=== PATIENT | male | born 1960 | race African-American/Black ===

== ENCOUNTER 2017-01-03 08:48 | Day surgery (SDC) | payer OTHER ==
[~2017-01-03] VITALS: Ht 182.9 cm; Wt 84.1 kg
[2017-01-03] MEDS ORDERED: FENTAnyl 50 MCG/ML VIAL ONE (09:22)
[2017-01-03] MEDS ORDERED: MIDAZOLAM 1 MG/ML 2 ML INJ ONE (09:22)
[2017-01-03] MEDS ORDERED: PROPOFOL 20 ML ONE ×2 (09:23→10:01)
[2017-01-03 09:24] VITALS: Ht 182.9 cm; Wt 84.1 kg
[2017-01-03] MEDS ORDERED: ARIP10TA13 PO (09:29)
[2017-01-03 09:37] VITALS: BP 158/70; PULSE 56; RESP 18
--- NOTE | 2017-01-03 10:26 | OPPN ---
Date/Time of Note Date/Time of Note DATE: 01/03/17 TIME: 10:24 Proc Note GI Free Text/Dictation Colonoscopy, multiple biopsies of diminutive polyps Procedure date: Jan 03, 2017 Pre-procedure Diagnosis Colon polyps Post-procedure Diagnosis colon polyps, diverticulosis Operation Performed Colonoscopy and biopsies Surgeon: SUKHJINDER ANDRADE M.D. Anesthesia Type: MAC Anesthesiologist: MERYL ONEILL MD Estimated blood loss: minimal Transfusion Required: no Specimens multiple diminutive polyps Grafts/Implants: none Complications: no Pt Condition post procedure: stable Disposition: PACU SUKHJINDER ANDRADE M.D. Jan 03, 2017 10:26
[2017-01-03 10:55] VITALS: BP 126/76; RESP 19
--- NOTE | 2017-01-03 11:14 | OPR ---
DATE OF OPERATION: 01/03/2017 OPERATION PERFORMED: Colonoscopy and biopsy. PREOPERATIVE DIAGNOSIS: Colon polyps. POSTOPERATIVE DIAGNOSIS: Colon polyps. SURGEON: Xavi New MD. ANESTHESIOLOGIST: Dr. Boswell. POSITION: Left lateral decubitus. OPERATIVE FINDINGS AT SURGERY: 1. Multiple diminutive sessile polyps. 2. Mild left-sided diverticulosis. ESTIMATED BLOOD LOSS: Minimal. INDICATIONS: A 56-year-old man, who came to the office claiming he had a colonoscopy 5 or 6 years ago with multiple polyps removed. Given the patient's age and findings from last visit, I discussed the risks and benefits of a colonoscopy, possible biopsy. I warned the patient of the risks including bleeding, infection, damage to surrounding structures, perforation. Patient agreed to the procedure and we went to the GI suite. OPERATIVE PROCEDURE: After obtaining consent, the patient was brought to the GI suite. After induction of anesthesia, patient was gently placed in left lateral decubitus position. Pressure points were carefully padded. I began with a digital rectal exam, which was unremarkable. I then placed a lubricated Olympus colonoscope in the patient's anus and navigated carefully to the cecum. The cecum was identified by the ileocecal valve and the appendiceal orifice. On the way out, the prep was good. I biopsied multiple diminutive polyps at 70, 30, 20 and 15 from the anal verge. These were removed with cold forceps and sent for pathology. Hemostasis was achieved. On retroflexion, patient had mild internal hemorrhoids. The scope was removed and the procedure was terminated. The patient tolerated the procedure well. Patient was transferred to PACU in good condition. I will call patient with biopsy results. Dictated By: Xavi New MD /kushal/dinora /Document#: [id number] GABRIEL
== END 2017-01-03 11:36 | disposition home or self-care (01) ==
LOC: GIL 08:48
PROVIDERS: ATTEND Surgery
DX: Z12.11 Encounter for screening for malignant neoplasm of colon (principal); K57.90 Diverticulosis of intestine, part unspecified, without perforation or abscess without bleeding; K63.5 Polyp of colon
CPT/HCPCS: 45380; 88305; J2250; J3010; Z7610

== ENCOUNTER 2017-02-08 06:45 | Day surgery (SDC) | payer OTHER ==
[2017-02-08] VITALS (10 sets, daily range): BP systolic 114–143; BP diastolic 73–85; PULSE 55–64; RESP 14–22
[~2017-02-08] VITALS: Ht 182.9 cm; Wt 81.2 kg
[~2017-02-08 06:45] MED LIST: ARIP10TA13 PO; CLINDAMYCIN 600 MG/D5W (PMX) 50 ML IVPB SCH; SOD CHLORIDE 0.9% 1,000 ML IV SCH
[2017-02-08] MEDS ORDERED: LIDOCAINE 2% (SDV) 5 ML INJ ONE (07:10)
[2017-02-08] MEDS ORDERED: PROPOFOL 20 ML ONE (07:10)
[2017-02-08] MEDS ORDERED: MIDAZOLAM 1 MG/ML 2 ML INJ ONE (07:11)
[2017-02-08] MEDS ORDERED: ONDANSETRON 4 MG INJ ONE (07:11)
[2017-02-08] MEDS ORDERED: DEXAMETHASONE 4 MG/ML 1 ML INJ ONE (07:11)
[2017-02-08] MEDS ORDERED: FENTAnyl 50 MCG/ML VIAL ONE (07:11)
[2017-02-08] MEDS ORDERED: BUPIVACAINE 0.25% (MPF) 30 ML INJ ONE (07:50)
[2017-02-08] MEDS ORDERED: GLYCOPYRROLATE 0.4 MG INJ ONE (08:11)
--- NOTE | 2017-02-08 08:13 | RADRPT ---
PROCEDURE: XR Chest 1 View. CLINICAL INDICATION: Abnormal breath sounds, preop. TECHNIQUE: AP view of the chest was obtained. COMPARISON: None. FINDINGS: The heart size is within normal limits. Calcified atherosclerosis is noted in the aorta. No consol idations are identified. No pneumothorax is seen. Osseous structures are intact. IMPRESSION: Calcified atherosclerosis in the aorta. Clear lungs. RPTAT: AA .Kennedy Faulkner MD, Date Time Electronically viewed and signed by .Kennedy Faulkner MD, MD on 02/08/2017 08:13 .P/
[2017-02-08] MEDS ORDERED: MEPERIDINE 25 MG INJ IV PRN (08:30)
[2017-02-08] MEDS ORDERED: DIPHENHYDRAMINE 50 MG INJ IV PRN (08:30)
[2017-02-08] MEDS ORDERED: METOCLOPRAMIDE 10 MG INJ IV PRN (08:30)
[2017-02-08] MEDS ORDERED: OXYCODONE/ACETAMINOPHEN (5/325) TAB PO PRN ×2 (08:30)
[2017-02-08] MEDS ORDERED: ONDANSETRON 4 MG INJ IV PRN (08:30)
[2017-02-08] MEDS ORDERED: HYDROmorphONE (0.2 MG/ML) 10ML SYG IV PRN ×3 (08:30)
[2017-02-08] MEDS ORDERED: BUPIVACAINE 0.25% (MPF) 30 ML INJ INJ ONE (08:56)
--- NOTE | 2017-02-08 09:05 | SIPON ---
Date/Time of Note Date/Time of Note DATE: 02/08/17 TIME: 09:04 Operative Report Preoperative Diagnosis penile mass Postoperative Diagnosis same Operation/Procedure Performed 1. excision of penile mass 3 cm mass 3 cm incision 2. localized adjacent tissue transfer with the use of skin flaps defect size of 6 sq cm 3. therapeutic injection of subcutaneous marcaine Surgeon see signature line central supply assistant none Anesthesia: general Estimated blood loss: 0 - 10 ml's Transfusion Required none Specimen penile mass Grafts/Implants none Complications none Yusuf PETERSON Feb 08, 2017 09:05
[2017-02-08] MEDS ORDERED: HYDROCODONE/APAP (5/325) TAB PO ONE (09:30)
--- NOTE | 2017-02-08 10:00 | OPR ---
DATE OF OPERATION: 02/08/2017 INDICATION: The patient is a 56-year-old male with a right base of the penis mass. He requested surgical excision. Risks, alternatives, benefits, and personnel were discussed the patient. Patient expressed understanding. Consents to the operation. PREOPERATIVE DIAGNOSIS: Superficial base of the penis mass. POSTOPERATIVE DIAGNOSIS: Superficial base of the penis mass. OPERATION: 1. Excision of right anterior base of the penis mass with 3 cm size incision and 3 x 2 cm size mass. 2. Localized adjacent tissue transfer with use of skin flaps of 6 square cm defect. 3. Therapeutic subcutaneous Marcaine injection. SURGEON: Ángel Nguyễn SPECIMEN: Right base of the penis mass. COMPLICATIONS: None. ANESTHESIA: General. EBL: Minimal. OPERATIVE PROCEDURE: Patient was taken to the OR, prepped and draped in usual sterile fashion. Surgical time-out was performed. IV antibiotics given. Elliptical incision is made over the mass with a 15 blade. Dissection cautery was carried down to the superficial mass and the mass is excised. There was good hemostasis. Due to the tissue defect, localized adjacent tissue transfer with the use of skin flaps was performed. Multilayered closure with interrupted 3-0 Vicryl and running 4-0 Monocryl. Therapeutic subcutaneous local anesthesia was injected throughout the incision site. Dermabond and dry dressings were applied. Dictated By: Ángel Nguyễn /fnt/ak /Document#: [id number]
--- NOTE | 2017-02-08 16:37 | RADRPT ---
Vent Rate: 53 bpm RR Interval: 0 msec KS Interval: 152 msec QRS Duration: 86 msec QT Interval: 452 msec QTC Interval: 424 msec P-R-T Rebecca: 58 - 71 - 70 degrees Sinus bradycardia Early repolarization Otherwise normal ECG Electronically Signed By: Bernard Avilez [id number]
== END 2017-02-08 10:48 | disposition home or self-care (01) ==
LOC: SDS 06:45
PROVIDERS: ATTEND Surgery
DX: N48.89 Other specified disorders of penis (principal); I82.890 Acute embolism and thrombosis of other specified veins
CPT/HCPCS: 14040; 71010; 88307; 93005; J1100; J2250; J2405; J3010; Z7512; Z7610

== ENCOUNTER 2017-06-07 08:28 | Day surgery (SDC) | END 2017-06-07 16:10 | disposition home or self-care (01) ==

== ENCOUNTER 2017-06-08 10:30 | Emergency (ER) | END 2017-06-08 15:13 | disposition home or self-care (01) ==

== ENCOUNTER → 2017-12-26 12:15 | Day surgery (SDC) | END | disposition home or self-care (01) ==